=== PATIENT | female | born 1995 | race Caucasian/White ===

== ENCOUNTER 2024-03-11 19:04 | Emergency (ER) | payer BC, MEDICAID ==
[~2024-03-11] VITALS: Ht 165.1 cm; Wt 60.0 kg
[2024-03-11 19:06] VITALS: O2SAT 100
[2024-03-11] MEDS: SODIUM CHLORIDE 0.9% 1,000 ML IV ONE (19:42)
[2024-03-11] MEDS: MORPHINE SULFATE 4 MG/ML INJ (FOR IV/IM USE) IV ONE (19:48)
[2024-03-11] MEDS: ONDANSETRON HCL 4MG/2ML INJ IV ONE (19:48)
[2024-03-11 20:43] LABS: BASOPHILS % 0.3 % (0.0-2.0); EOSINOPHILS % 2.3 % (0.0-5.0); HEMATOCRIT. 32.4 % (36.0-48.0); HEMOGLOBIN. 10.6 g/dL (12.0-16.0); LYMPHOCYTES % 31.9 % (20.0-50.0); MEAN CORPUSCULAR HEMOGLOBIN 30.3 pg (28.0-32.0); MEAN CORPUSCULAR HGB CONC 32.9 g/dL (31.0-37.0); MEAN PLATELET VOLUME 8.5 fl (7.4-10.4); MONOCYTES % 3.8 % (2.0-8.0); NEUTROPHILS % 61.7 % (40.0-76.0); PLATELET 192 x1000/uL (130-400); RED BLOOD CELL COUNT 3.52 mill/uL (4.2-5.4); RED CELL DISTRIBUTION WIDTH 14.7 % (11.6-14.6); WHITE BLOOD COUNT 5.1 x1000/uL (4.5-11.0)
[2024-03-11 20:47] LABS: CHLORIDE 110 mEq/L (98-107); POTASSIUM 3.3 mEq/L (3.5-5.1); SODIUM 141 mEq/L (136-145)
[2024-03-11 20:48] LABS: CALCIUM 8.9 mg/dL (8.7-10.4); CARBON DIOXIDE 21 mEq/L (21-32)
[2024-03-11 20:53] LABS: CREATININE 0.6 mg/dL (0.6-1.0); GLUCOSE 73 mg/dL (70-105); UREA NITROGEN BLOOD 8 mg/dL (9-23)
[2024-03-11 21:01] LABS: HCG SCREEN NEGATIVE
[2024-03-11] MEDS: HYDROCODONE/ACETAMINOPHEN 5/325MG TABLET PO STA (22:03)
[2024-03-11] MEDS ORDERED: T3 PO ×2 (23:36→23:38)
[2024-03-11] MEDS: MORPHINE SULFATE 2 MG/ML INJ (NOT FOR IM USE) IV ONE (23:56)
[2024-03-12 00:22] VITALS: BP 104/61; PULSE 70; RESP 18; TEMP 36.89184; O2SAT 100
== END 2024-03-12 00:23 | disposition home or self-care (01) ==
LOC: ER 19:04
DX: N89.8 Other specified noninflammatory disorders of vagina (principal); Z90.710 Acquired absence of both cervix and uterus
CPT/HCPCS: 99291; 74176; 96374; 96361; 96375; 80048; 84703; 85025; 36415; 96376; J2405; J2270 ×2; J7030

== ENCOUNTER 2024-07-23 20:42 | Emergency (ER) | payer BC, MEDICAID ==
[~2024-07-23] VITALS: Ht 170.2 cm; Wt 73.0 kg
[~2024-07-23 20:42] MED LIST: T3 PO
[2024-07-23 20:54] VITALS: O2SAT 100
[2024-07-23 22:00] LABS: BASOPHILS % 0.6 % (0.0-2.0); EOSINOPHILS % 3.4 % (0.0-5.0); HEMATOCRIT. 36.1 % (36.0-48.0); HEMOGLOBIN. 12.3 g/dL (12.0-16.0); LYMPHOCYTES % 26.9 % (20.0-50.0); MEAN CORPUSCULAR HEMOGLOBIN 29.8 pg (28.0-32.0); MEAN CORPUSCULAR HGB CONC 34.1 g/dL (31.0-37.0); MEAN CORPUSCULAR VOLUME 87.3 fL (81.0-99.0); MEAN PLATELET VOLUME 8.8 fl (7.4-10.4); MONOCYTES % 5.7 % (2.0-8.0); NEUTROPHILS % 63.4 % (40.0-76.0); PLATELET 237 x1000/uL (130-400); RED BLOOD CELL COUNT 4.13 mill/uL (4.2-5.4); RED CELL DISTRIBUTION WIDTH 15.1 % (11.6-14.6); WHITE BLOOD COUNT 5.8 x1000/uL (4.5-11.0)
[2024-07-23] MEDS: ACETAMINOPHEN 325MG TABLET PO ONE (22:10)
[2024-07-23 22:15] LABS: CHLORIDE 104 mEq/L (98-107); POTASSIUM 5.2 mEq/L (3.5-5.1); SODIUM 137 mEq/L (136-145)
[2024-07-23 22:16] LABS: CARBON DIOXIDE 28 mEq/L (21-32)
[2024-07-23 22:21] LABS: CREATININE 0.6 mg/dL (0.6-1.0); GLUCOSE 78 mg/dL (70-105); UREA NITROGEN BLOOD 14 mg/dL (9-23)
[2024-07-23 22:27] LABS: HCG SCREEN NEGATIVE
[2024-07-23] MEDS: ONDANSETRON HCL 4MG/2ML INJ IV ONE (23:01)
[2024-07-23] MEDS: MORPHINE SULFATE 4 MG/ML INJ (FOR IV/IM USE) IV ONE (23:02)
[2024-07-23] MEDS: SODIUM CHLORIDE 0.9% 1,000 ML IV ONE (23:02)
[2024-07-24] MEDS: HYDROCODONE/ACETAMINOPHEN 5/325MG TABLET PO ONE (02:51)
[2024-07-24 03:51] LABS: CLARITY URINE CLOUDY (CLEAR); COLOR URINE YELLOW (YELLOW); GLUCOSE URINE NEGATIVE (NEGATIVE); KETONES URINE 2+ (NEGATIVE); LEUKOCYTE ESTERASE URINE 1+ (NEGATIVE); NITRITE URINE POSITIVE (NEGATIVE); OCCULT BLOOD URINE 2+ (NEGATIVE); PROTEIN URINE 1+ (NEGATIVE); SPECIFIC GRAVITY URINE 1.089 (1.005-1.030)
[2024-07-24 04:10] LABS: SQUAMOUS EPITHELIAL CELL URINE 1+ /lpf (RARE/1+)
[2024-07-24 04:17] LABS: RBC URINE 0-2 /hpf (0-2); WBC URINE 25-50 /hpf (0-2)
[2024-07-24 04:19] LABS: BACTERIA URINE 1+
[2024-07-24] MEDS: IOHEXOL-300 100 ML BOTTLE ONE (04:45)
[2024-07-24] MEDS ORDERED: ACET-2708 MT (05:31)
[2024-07-24] MEDS ORDERED: CEPH500C2 MT (05:31)
[2024-07-24] MEDS: CEPHALEXIN 250MG CAPSULE PO ONE (05:40)
[2024-07-24 05:54] VITALS: BP 84/46; PULSE 62; RESP 11; TEMP 36.6; O2SAT 100
== END 2024-07-24 06:01 | disposition home or self-care (01) ==
LOC: ER 20:42
DX: N39.0 Urinary tract infection, site not specified (principal); M79.7 Fibromyalgia; Z90.710 Acquired absence of both cervix and uterus; Z79.899 Other long term (current) drug therapy; Z88.8 Allergy status to other drugs, medicaments and biological substances
CPT/HCPCS: 99285; 96374; 76830; 76856; 96375; 80048; 84703; 85025; 86850; 86900; 86901; 36415; 74177; 81003; 87086; 87186; 87077; J2405; J2270; J7030; Q9967

== ENCOUNTER 2024-10-12 20:50 | Emergency (ER) | payer BC, MEDICAID ==
[~2024-10-12] VITALS: Ht 154.9 cm; Wt 64.0 kg
[~2024-10-12 20:50] MED LIST changes: +ACET-2708 MT; +CEPH500C2 MT
[2024-10-12 21:01] VITALS: O2SAT 100
[2024-10-12 22:21] LABS: BASOPHILS % 0.6 % (0.0-2.0); EOSINOPHILS % 0.6 % (0.0-5.0); HEMATOCRIT. 36.3 % (36.0-48.0); HEMOGLOBIN. 12.3 g/dL (12.0-16.0); LYMPHOCYTES % 28.2 % (20.0-50.0); MEAN PLATELET VOLUME 8.5 fl (7.4-10.4); MONOCYTES % 4.5 % (2.0-8.0); NEUTROPHILS % 66.1 % (40.0-76.0); PLATELET 261 x1000/uL (130-400); RED BLOOD CELL COUNT 4.14 mill/uL (4.2-5.4); RED CELL DISTRIBUTION WIDTH 14.6 % (11.6-14.6)
[2024-10-12 22:37] LABS: CREATININE 0.6 mg/dL (0.6-1.0); HCG SCREEN NEGATIVE; UREA NITROGEN BLOOD 14 mg/dL (9-23)
[2024-10-12 22:38] LABS: TROPONIN I HIGH SENSITIVITY < 4 ng/L (3.0-34)
[2024-10-12 22:39] LABS: ASPARTATE AMINOTRANSFERASE 25 IU/L (<34); BILIRUBIN DIRECT 0.2 mg/dL (<=3.0); BILIRUBIN TOTAL 0.6 mg/dL (0.1-1.0); PROTEIN TOTAL 7.1 g/dL (6.0-8.3)
[2024-10-12 22:40] LABS: INR 1.1
[2024-10-12] MEDS: MORPHINE SULFATE 4 MG/ML INJ (FOR IV/IM USE) IV ONE (22:53)
[2024-10-12 23:39] LABS: CLARITY URINE TURBID (CLEAR); COLOR URINE YELLOW (YELLOW); GLUCOSE URINE NEGATIVE (NEGATIVE); KETONES URINE 4+ (NEGATIVE); LEUKOCYTE ESTERASE URINE 3+ (NEGATIVE); NITRITE URINE POSITIVE (NEGATIVE); OCCULT BLOOD URINE 1+ (NEGATIVE); PH URINE 7.0 (4.5-8.0); PROTEIN URINE 2+ (NEGATIVE); SPECIFIC GRAVITY URINE 1.023 (1.005-1.030); UROBILINOGEN URINE 1.0 E.U./dL (0.2-1.0)
[2024-10-12 23:57] LABS: SQUAMOUS EPITHELIAL CELL URINE 1+ /lpf (RARE/1+); WBC URINE TNTC /hpf (0-2)
[2024-10-12 23:58] LABS: *AMPHETAMINES SCREEN URINE NEGATIVE (NEGATIVE); *BENZODIAZEPINES SCREEN URINE PRESUMPTIVE POSITIVE (NEGATIVE)
[2024-10-12 23:59] LABS: *BARBITURATES SCREEN URINE NEGATIVE (NEGATIVE); *COCAINE SCREEN URINE NEGATIVE (NEGATIVE); BACTERIA URINE 4+; CANNABINOID URINE SCREEN PRESUMPTIVE POSITIVE (NEGATIVE); ECSTASY MDMA SCREEN URINE NEGATIVE (NEGATIVE); METHADONE URINE SCREEN NEGATIVE (NEGATIVE); OPIATES URINE SCREEN PRESUMPTIVE POSITIVE (NEGATIVE); PHENCYCLIDINE URINE SCREEN NEGATIVE (NEGATIVE); RBC URINE 0-2 /hpf (0-2)
[2024-10-13] MEDS: MORPHINE SULFATE 4 MG/ML INJ (FOR IV/IM USE) IV NR (01:42)
[2024-10-13] MEDS ORDERED: HYDR-4001 MT (02:04)
[2024-10-13] MEDS ORDERED: CEFP200T13 MT (02:08)
[2024-10-13] MEDS: CEFTRIAXONE 2GM/50ML 50 ML IV NR (02:20)
[2024-10-13 03:41] VITALS: BP 110/69; PULSE 73; RESP 13; TEMP 36.7; O2SAT 100
== END 2024-10-13 03:45 | disposition home or self-care (01) ==
LOC: ER 20:50
DX: S00.03XA Contusion of scalp, initial encounter (principal); R55 Syncope and collapse; N39.0 Urinary tract infection, site not specified; R06.02 Shortness of breath; Z00.00 Encounter for general adult medical examination without abnormal findings; Z88.6 Allergy status to analgesic agent; Z98.890 Other specified postprocedural states; Z79.899 Other long term (current) drug therapy; Z90.710 Acquired absence of both cervix and uterus; X58.XXXA Exposure to other specified factors, initial encounter; Y93.89 Activity, other specified; Y92.89 Other specified places as the place of occurrence of the external cause; Y99.8 Other external cause status
CPT/HCPCS: 80076; 80305; 80048; 81003; 84703; 83880; 83690; 83735; 85025; 85610; 87086; 84484; 36415; 71045; 70450; 74177; 93005; 96375; 99285; 80320; 87040; 96365; 96376; Q9967; J2270 ×2; J0696; G0480